=== PATIENT | female | born 1945 | race Caucasian/White ===

== ENCOUNTER 2018-08-04 09:36 | Day surgery (SDC) | payer MEDICARE, OTHER ==
[~2018-08-04] VITALS: Ht 165.1 cm; Wt 43.6 kg
[~2018-08-04 09:36] MED LIST: ALEN35 PO; ATOR20 PO; CYAN1000 PO; DOCU100 PO; ESTR2 PO; Flonase 0.05% N16 GM; GABA100 PO; HYDACE5 PO; Halcion0.25 MG PO; LOSA50 PO; OXYACE5T PO; PSEU120ER PO; Percocet 5-3251 EACH PO; TRAZ100 PO; VERA120ERB PO
[2018-08-04] MEDS ORDERED: Aspir 8181 MG (10:24)
--- NOTE | 2018-08-04 10:56 | NUR ---
08/04/18 1056 Bindu Lugo PT TEACHING DONE REGARDING PROCEDURE, NO QUESTIONS PRESENTED FROM PT OR SISTER. WARM BLANKET GIVEN TO PT. BED IN LOW, LOCKED POSITION, CALL LIGHT IN REACH.
== END 2018-08-04 12:21 | disposition home or self-care (01) ==
LOC: ORSCSDS 09:36
PROVIDERS: Student in an Organized Health Care Education/Training Program
PROC: 0DBK8ZX Excision of Ascending Colon, Via Natural or Artificial Opening Endoscopic, Diagnostic (ICD-10-PCS; principal; 2018-08-04 11:00)
DX: Z12.11 Encounter for screening for malignant neoplasm of colon (principal); D12.2 Benign neoplasm of ascending colon; I10 Essential (primary) hypertension; Z79.899 Other long term (current) drug therapy; Z79.82 Long term (current) use of aspirin
CPT/HCPCS: 88305; J2405; J7120

== ENCOUNTER 2021-01-10 09:00 | Day surgery (SDC) | payer MEDICARE, OTHER ==
[~2021-01-10 09:00] MED LIST changes: +Aspir 8181 MG
== END 2021-01-10 12:00 | disposition home or self-care (01) ==
LOC: MOI US 09:00 → MOI MAM 09:30 → MOI US 09:30
DX: N60.91 Unspecified benign mammary dysplasia of right breast (principal); N60.02 Solitary cyst of left breast
CPT/HCPCS: 19000; 19083; 76942; 77065; 88108; 88305; A4648

== ENCOUNTER 2021-02-28 09:05 | Day surgery (SDC) | payer MEDICARE, OTHER ==
[~2021-02-28 09:05] MED LIST changes: -Aspir 8181 MG; +Aspir 8181 MG PO; +C COMPLEX1000 M1 PO; +Calcium Carbon500 MG PO; +FISH OIL 1,2001 EAC7 PO; +VERA120 PO; +VITAMIN D310 MC4 PO
== END 2021-02-28 23:38 | disposition home or self-care (01) ==
LOC: MOI US 09:05
DX: N60.91 Unspecified benign mammary dysplasia of right breast (principal); R92.1 Mammographic calcification found on diagnostic imaging of breast
CPT/HCPCS: 19285; 77065; A4648

== ENCOUNTER 2021-03-04 06:09 | Day surgery (SDC) | payer MEDICARE, OTHER ==
[~2021-03-04] VITALS: Ht 165.1 cm; Wt 49.2 kg
== END 2021-03-04 09:35 | disposition home or self-care (01) ==
LOC: ORSCSDS 06:09 → ORSCMMR 07:30 → ORD 07:30 → ORSCSDS 07:30
PROVIDERS: Surgery
PROC: 0HBT0ZX Excision of Right Breast, Open Approach, Diagnostic (ICD-10-PCS; principal; 2021-03-04 07:30)
DX: D05.11 Intraductal carcinoma in situ of right breast (principal); I10 Essential (primary) hypertension; Z79.899 Other long term (current) drug therapy
CPT/HCPCS: 88307; 88342; 88360; J0690; J1100; J2250; J2405; J2704; J3010; J7120; Q9968

== ENCOUNTER 2021-03-18 09:20 | Day surgery (SDC) | payer MEDICARE, OTHER ==
[~2021-03-18] VITALS: Ht 165.1 cm; Wt 48.3 kg
--- NOTE | 2021-03-18 10:51 | NUR ---
History, Chart, Medications and Allergies reviewed before start of procedure. Patient confirms NPO status and agrees with scheduled surgery. Patient States Post-Procedure ride home has been arranged with her sister.
--- NOTE | 2021-03-18 16:30 | NUR ---
Patient up to Ambulate independently. Gait steady. Discharge instructions reviewed with patient. Patient verbalizes understanding. Copy given to patient to take home. Discharged via wheelchair to private car for ride home.
== END 2021-03-18 16:22 | disposition home or self-care (01) ==
LOC: NM 09:20 → ORSCMMR 09:20 → NM 10:30
PROVIDERS: Surgery
PROC: 0HBT0ZZ Excision of Right Breast, Open Approach (ICD-10-PCS; principal; 2021-03-18 12:30)
PROC: 07B50ZX Excision of Right Axillary Lymphatic, Open Approach, Diagnostic (ICD-10-PCS; principal; 2021-03-18 12:30)
DX: C50.411 Malignant neoplasm of upper-outer quadrant of right female breast (principal); D36.0 Benign neoplasm of lymph nodes; I10 Essential (primary) hypertension; E78.5 Hyperlipidemia, unspecified; Z79.899 Other long term (current) drug therapy; Z79.82 Long term (current) use of aspirin
CPT/HCPCS: 38792; 88305; 88307; 88342; A9270; A9520; J0690; J1100; J1170; J1885; J2250; J2370; J2405; J2704; J3010; J7120; Q9968

== ENCOUNTER 2023-03-21 08:30 | Emergency (ER) | payer MEDICARE, OTHER ==
[~2023-03-21] VITALS: Ht 165.1 cm; Wt 49.9 kg
[2023-03-21 09:31] LABS: Source, Urine Clean Catch
[2023-03-21] MEDS ORDERED: Pyridium200 MG PO (09:51)
[2023-03-21] MEDS ORDERED: CEPH500 PO (09:51)
[2023-03-21 10:03] LABS: Appearance, Urine Bloody (Clear); Bilirubin, Urine Neg (Neg); Blood, Urine 5+ (Neg); Color, Urine Red (P-Yellow); Glucose Qualitative, Urine Neg (Neg); Ketones, Urine Neg (Neg); Leukocyte Esterase, Urine 1+ (Neg); Nitrite, Urine Neg (Neg); Protein, Urine 4+ (Neg); Urobilinogen, Urine NORM (Normal); pH, Urine 6.5 (5.0-8.0)
[2023-03-21 10:07] LABS: Bacteria Not Seen /hpf; Squamous Epithelial Cells Not Seen /hpf (Few)
[2023-03-21 10:09] LABS: Red Blood Cells, Urine TNTC /hpf (0-2)
[2023-03-21 10:39] LABS: BASOPHILS ABSOLUTE AUTO 0.03 K/mm3 (0.00-0.23); BASOPHILS PERCENT AUTO 1 % (0-2); EOSINOPHILS ABSOLUTE AUTO 0.07 K/mm3 (0.00-0.68); EOSINOPHILS PERCENT AUTO 1 % (0-6); Hematocrit 31.5 % (33.0-51.0); Hemoglobin 10.5 g/dL (11.5-16.0); IMMATURE GRAN ABSOLUTE AUTO 0.02 K/mm3 (0.00-0.10); IMMATURE GRAN PERCENT AUTO 0 % (0-1); LYMPHOCYTES ABSOLUTE AUTO 1.25 K/mm3 (0.84-5.20); LYMPHOCYTES PERCENT AUTO 25 % (21-46); MONOCYTES ABSOLUTE AUTO 0.48 K/mm3 (0.16-1.47); MONOCYTES PERCENT AUTO 10 % (4-13); Mean Corpuscular HGB 31.6 pg (26.0-34.0); Mean Corpuscular HGB Conc 33.3 g/dL (31.5-36.5); Mean Corpuscular Volume 95 fL (80-100); Mean Platelet Volume 8.9 fL (9.1-12.4); NEUTROPHILS ABSOLUTE AUTO 3.19 K/mm3 (1.96-9.15); NEUTROPHILS PERCENT AUTO 63 % (41-73); Platelet Count 214 K/mm3 (150-400); RDW Coefficient Variation 12.8 % (11.7-14.2); RDW Standard Deviation 44.3 fL (35.1-46.3); Red Blood Cell Count 3.32 M/mm3 (3.80-5.20); White Blood Cell Count 5.04 K/mm3 (4.00-11.30)
[2023-03-21 11:10] LABS: Albumin, Blood 3.4 g/dL (3.4-5.0); Albumin/Globulin Ratio 1.2 (0.8-1.8); Bilirubin, Total 0.5 mg/dL (0.1-1.0); Calcium, Blood 9.7 mg/dL (8.5-10.1); Creatinine, Blood 0.9 mg/dL (0.40-1.00); Globulin, Blood 2.9 g/dL (2.2-4.0); Potassium, Blood 3.9 mmol/L (3.5-5.5); Total Protein, Blood 6.3 g/dL (6.4-8.2)
[2023-03-21 12:14] VITALS: BP 140/110
== END 2023-03-21 12:54 | disposition home or self-care (01) ==
LOC: ER 08:30
PROVIDERS: Emergency Medicine
DX: N39.0 Urinary tract infection, site not specified (principal); N32.89 Other specified disorders of bladder; I10 Essential (primary) hypertension; R31.9 Hematuria, unspecified; Z85.51 Personal history of malignant neoplasm of bladder; Z88.2 Allergy status to sulfonamides; Z79.82 Long term (current) use of aspirin; Z79.899 Other long term (current) drug therapy
CPT/HCPCS: 74177; 80053; 81001; 85025; 99284-25; Q9967

== ENCOUNTER 2024-12-02 14:09 | Emergency (ER) | payer OTHER, MEDICARE ==
[~2024-12-02] VITALS: Ht 165.1 cm; Wt 52.6 kg
[~2024-12-02 14:09] MED LIST changes: +CEPH500 PO; +Pyridium200 MG PO
[2024-12-02 14:52] LABS: BASOPHILS ABSOLUTE AUTO 0.05 K/mm3 (0.00-0.23); BASOPHILS PERCENT AUTO 1 % (0-2); EOSINOPHILS ABSOLUTE AUTO 0.09 K/mm3 (0.00-0.68); EOSINOPHILS PERCENT AUTO 1 % (0-6); Hematocrit 35.9 % (33.0-51.0); Hemoglobin 12.1 g/dL (11.5-16.0); IMMATURE GRAN ABSOLUTE AUTO 0.06 K/mm3 (0.00-0.10); IMMATURE GRAN PERCENT AUTO 1 % (0-1); LYMPHOCYTES ABSOLUTE AUTO 1.18 K/mm3 (0.84-5.20); LYMPHOCYTES PERCENT AUTO 17 % (21-46); MONOCYTES ABSOLUTE AUTO 0.51 K/mm3 (0.16-1.47); MONOCYTES PERCENT AUTO 7 % (4-13); Mean Corpuscular HGB 31.6 pg (26.0-34.0); Mean Corpuscular HGB Conc 33.7 g/dL (31.5-36.5); Mean Corpuscular Volume 94 fL (80-100); Mean Platelet Volume 8.7 fL (9.1-12.4); NEUTROPHILS ABSOLUTE AUTO 5.02 K/mm3 (1.96-9.15); NEUTROPHILS PERCENT AUTO 73 % (41-73); Platelet Count 280 K/mm3 (150-400); RDW Coefficient Variation 12.8 % (11.7-14.2); Red Blood Cell Count 3.83 M/mm3 (3.80-5.20); White Blood Cell Count 6.91 K/mm3 (4.00-11.30)
[2024-12-02] MEDS ORDERED: Acetaminophen 500 MG Tab PO ONE (14:55)
[2024-12-02 15:02] LABS: Albumin, Blood 1.5 g/dL (3.4-5.0); Albumin/Globulin Ratio 0.3 (0.8-1.8); Bilirubin, Total 0.4 mg/dL (0.1-1.0); Bun/Creatinine Ratio 30.5 (12.0-20.0); Calcium, Blood 9.9 mg/dL (8.5-10.1); Creatinine, Blood 0.92 mg/dL (0.40-1.00); Globulin, Blood 5.4 g/dL (2.2-4.0); Potassium, Blood 4.1 mmol/L (3.5-5.5); Total Protein, Blood 6.9 g/dL (6.4-8.2)
[2024-12-02] MEDS ORDERED: OxyCODONE HCL 5 MG TAB PO ONE (15:55)
[2024-12-02] MEDS ORDERED: Roxicodone5 MG PO (15:57)
[2024-12-02] MEDS ORDERED: ACET500 PO (15:57)
[2024-12-02 16:15] VITALS: BP 167/64
== END 2024-12-02 16:27 | disposition home or self-care (01) ==
LOC: ER 14:09
PROVIDERS: Emergency Medicine
DX: S20.219A Contusion of unspecified front wall of thorax, initial encounter (principal); I10 Essential (primary) hypertension; V68.5XXA Driver of heavy transport vehicle injured in noncollision transport accident in traffic accident, initial encounter
CPT/HCPCS: 71046; 71120; 80053; 84484; 85025; 93005; 93010; 99285-25; A6590; A9270; P9612